=== PATIENT | female | born 1970 | race Caucasian/White ===

== ENCOUNTER 2017-11-15 04:24 | Emergency (ER) | payer BC ==
[~2017-11-15] VITALS: Ht 170.2 cm; Wt 67.1 kg
[2017-11-15] MEDS ORDERED: LEVETIRACETAM (500MG) 500 MG/5 ML VIAL IV ONE (04:47)
--- NOTE | 2017-11-15 04:50 | NUR ---
JUAN RAMON 76 FROM HOME C/O WITNESSED 3-4 MIN SEIZURE WHILE ASLEEP IN BED. PT PRESENTS SLIGHTLY POSTICTAL AND AAOX3. PER EMS PT WAS POSTICTAL ON SCENE. PT DENIES PAIN, TRAUMA, OR ORAL TRAUMA. FIELD BS 151. PT STATES SHE HAS HX OF SEIZURES AND COMPLAINT WITH HER MEDICATIONS. SKIN WARM AND DRY. NO S/S OF ACUTE DISTRESS NOTED. RR EVEN AND UNLABORED. SEIZURE PRECAUTIONS IN PLACE. BEDSIDE FOR EVAL
[2017-11-15 05:10] LABS: MONOCYTES # (AUTO) 0.6 /CMM (0.1-1.30)
[2017-11-15 05:19] LABS: BASOPHILS % (AUTO) 0.5 % (0.0-2.0); CREATININE 1.1 mg/dL (0.6-1.3); EOSINOPHILS % (AUTO) 4.4 % (0.0-6.0); HEMATOCRIT 45 % (33-45); HEMOGLOBIN 15.5 g/dL (11.5-14.8); LYMPHOCYTES % (AUTO) 31.6 % (20.0-44.0); MEAN CORPUSCULAR HEMOGLOBIN 35 PG (26.0-33.0); MEAN CORPUSCULAR HGB CONC 34 g/dl (31.0-36.0); MEAN CORPUSCULAR VOLUME 103 fL (82-100); MONOCYTES % (AUTO) 10.3 % (2.0-12.0); NEUTROPHILS # (AUTO) 3.4 /CMM (1.8-8.9); NEUTROPHILS % (AUTO) 53.2 % (43.0-81.0); PLATELET COUNT (AUTO) 200 /CMM (150-450); POTASSIUM 3.7 mmol/L (3.5-5.1); RDW COEFFICIENT OF VARIATION 12.8 (11.5-15.0); RED BLOOD CELL COUNT(AUTO) 4.37 MIL/uL (4.0-5.2); WHITE BLOOD COUNT (AUTO) 6.3 K/uL (4.3-11.0)
[2017-11-15 05:25] LABS: ALBUMIN 3.9 g/dL (3.4-5.0); BILIRUBIN,DIRECT 0.1 mg/dL (0.0-0.2); BILIRUBIN,TOTAL 0.4 mg/dL (0.2-1.0); TOTAL PROTEIN, SERUM 7.4 g/dL (6.4-8.2)
--- NOTE | 2017-11-15 05:56 | NUR ---
Patient discharged to home in stable condition. Written and verbal after care instructions given. Patient verbalizes understanding of instruction.IV removed. Catheter intact and site benign. Pressure and 4x4 applied to site. No bleeding noted. PT AMBULATED WITH STEADY GAIT NOTED. NO S/S OF DISTRESS UPON DISCHARGE.
[2017-11-15 05:57] VITALS: BP 122/86
[2017-11-15] MEDS ORDERED: LEVETIRACETAM (500MG) 500 MG in IV NS 0.9% 100 ML IV ONE (06:00)
== END 2017-11-15 05:57 | disposition home or self-care (01) ==
LOC: ER 04:26
DX: G40.909 Epilepsy, unspecified, not intractable, without status epilepticus (principal)
CPT/HCPCS: 36415; 80048; 80076; 82962; 85025; 96365; 99284; A4606; J1953 ×2; J7030 ×2; Z7610